=== PATIENT | male | born 1995 | race Hispanic/Latino ===

== ENCOUNTER 2020-11-04 11:44 | Emergency (ER) | payer SELFPAY ==
[~2020-11-04] VITALS: Ht 170.2 cm; Wt 136.1 kg
[2020-11-04] MEDS ORDERED: CASIRIVIMAB/IMDEVIMAB 600 MG INJ IV ONE (12:45)
[2020-11-04] MEDS ORDERED: ACETAMINOPHEN 325 MG TAB PO ONE (13:15)
[2020-11-04] MEDS ORDERED: CASIRIVIMAB/IMDEVIMAB 600 MG in SODIUM CHLORIDE 0.9% 100 ML IV ONE (13:30)
== END 2020-11-04 15:49 | disposition home or self-care (01) ==
LOC: ER 12:28
DX: U07.1 COVID-19 (principal)
CPT/HCPCS: 99283; J7050; U0002